=== PATIENT | male | born 1990 | race Caucasian/White ===

== ENCOUNTER 2024-02-26 23:01 | Emergency (ER) | payer OTHER, SELFPAY ==
[2024-02-26 23:02] VITALS: BP 143/93; PULSE 69; RESP 18; TEMP 36.6; O2SAT 100; BMI 30.9
--- NOTE | 2024-02-26 23:22 | EX.ED.DYSGE1 ---
HPI History of Present Illness Chief Complaint: Chest Other Informant: patient Onset/Context/Timing Onset: Weeks (1) Context: Gradual Onset Timing: Continuous Quality: Sharp Location: Right chest Worsened by: Sitting forward Relieved by: Heat Narrative Narrative: Patient presents with right rib pain that began 1 week ago. Patient states that has been constant. Patient describes the pain is sharp. Patient states pain is localized to his right chest. Patient states it is worse when he sits forward. Patient states he applied heat to the right chest which helped somewhat. Patient denies any trauma or injury. Patient states he was doing some physical labor prior to the pain starting. Patient admits to a slight cough and some shortness of breath. Patient admits to some nausea but denies any vomiting. [facility] Medical History (Updated 02/27/24 @ 01:[address] Yo Adair DO) Complex regional pain syndrome i of right lower limb GERD (gastroesophageal reflux disease) Home Medications ?Medication ?Instructions ?Recorded ?Last Taken ?Type fluoxetine 20 mg capsule (Prozac) 20 mg PO DAILY 02/26/24 Unknown History gabapentin 100 mg capsule 100 mg PO BID 02/26/24 Unknown History omeprazole 20 mg capsule,delayed 20 mg PO DAILY 02/26/24 Unknown History release Allergy/AdvReac Type Severity Reaction Status Date / Time No Known Allergies Allergy Verified 02/26/24 23:02 Surgical History (Updated 02/26/24 @ 23:10 by Rupal Jacinto) S/P placement of nerve stimulator Social History Smoking Status: Never smoker ROS ROS ED Constitutional Constitutional ED: Denies chills or fever(s) Eyes Eyes: Denies blurry vision or change in vision ENT ENT ED: Denies rhinorrhea or sore throat Cardiovascular Cardiovascular: Reports chest pain; Denies palpitations Respiratory/Chest Respiratory/Chest: Reports cough and dyspnea Gastrointestinal Gastrointestinal: Reports nausea; Denies vomiting Genitourinary Genitourinary ED: Denies dysuria or hematuria Musculoskeletal Musculoskeletal: Reports back pain; Denies neck pain Integumentary Denies abscess or rash Neurologic Neurologic: Denies headache(s) or weakness Allergic/Immunologic Allergic/Immunologic ED: Denies mouth swelling or urticaria EXAM Physical Exam Const Vital Signs: 02/26/24 23:02 Temperature 98 F Temperature Source Oral Pulse Rate 69 Respiratory Rate 18 Blood Pressure 143/93 H Blood Pressure Mean 109 Pulse Ox 100 Oxygen Delivery Method Room Air Positive well nourished and well developed General Appearance ED: well developed and NAD HEENT Reports moist mucous membranes Neck supple and no JVD Chest Wall Chest Narrative: There is tenderness over the right lateral chest wall. There is no bony crepitance or step-off. There is no subcutaneous emphysema noted. Resp normal respiratory effort and clear to auscultation bilaterally Cardio regular rate and regular rhythm GI non-tender and non-distended Palpation: soft Extremity General Extremety ED: Negative for edema General Extremity: Negative for edema Neuro oriented x3, CN's II-XII intact bilaterally and no sensory deficits noted Sensorium / Orientation: alert Motor Exam: strength 5/5 throughout Psych mental status grossly normal MDM MDM MDM Narrative Medical decision making narrative: Differential diagnosis includes intercostal strain, rib fracture, and contusion. X-rays of the right ribs will be obtained to assess for rib fracture and pneumothorax. Radiography Diagnostic Testing: Clinical Impression(s) from Imaging Studies Ribs w/Chest X-Ray 02/26/24 23:50 IMPRESSION: No evidence of displaced rib fracture. Electronically Signed: Roman Traore MD at 0:34 EST Reading Location ID and State: [facility] / [place] Tel , Service support , X-rays of the right ribs were obtained. There are 5 views. On my independent interpretation, there is no acute fracture. There is no pneumothorax. Radiologist also interpreted the x-rays and agrees. Treatment and Re-Evaluation :: Patient was advised of his findings. Patient was instructed to take Tylenol or ibuprofen as needed for pain. Patient was instructed to take 10-15 deep breaths every hour while awake to prevent atelectasis and pneumonia. Patient was instructed to follow-up with his primary care physician in 5 to 7 days. Patient understood and was agreeable with the plan. All questions were answered. Discharge Plan Triage Chief Complaint: Chest Other ED Provider: Yo Adair Dx/Rx/DC Orders Clinical Impression: Right-sided chest wall pain, Complex regional pain syndrome i of right lower limb Instructions: ED Chest Wall Pain, Costochondritis Prescriptions: No Action omeprazole 20 mg capsule,delayed release(DR/EC) 20 mg PO DAILY gabapentin 100 mg capsule 100 mg PO BID fluoxetine [Prozac] 20 mg capsule 20 mg PO DAILY [facility] - 5-7 Days Print Language: Bulgarian Disposition Disposition: Home, Self Care
--- NOTE | 2024-02-26 23:50 | RAD_ITS ---
INDICATION: Pain EXAMINATION/TECHNIQUE: X-RAY - XR Ribs Unilateral W/ PA Chest Min 3 Views COMPARISON: No relevant prior comparison study available FINDINGS: SOFT TISSUES: No soft tissue swelling or gas. BONES: No displaced fracture. No sclerotic or destructive changes observed. VISUALIZED LUNGS: Clear. No pneumothorax. RAD/Ribs Uni Min 3V w/PA Chest IMPRESSION: No evidence of displaced rib fracture. Electronically Signed: Roman Traore MD at 0:34 EST ,
[2024-02-27 01:32] VITALS: BP 140/74; PULSE 69; RESP 18; TEMP 36.6; O2SAT 100
== END 2024-02-27 01:34 | disposition home or self-care (01) ==
PROVIDERS: Emergency Provider Emergency Medicine; Visit Provider Emergency Medicine
DX: R07.89 Other chest pain (principal); R07.82 Intercostal pain; R06.02 Shortness of breath; R05.9 Cough, unspecified; G90.521 Complex regional pain syndrome I of right lower limb; K21.9 Gastro-esophageal reflux disease without esophagitis; Z79.899 Other long term (current) drug therapy